=== PATIENT | female | born 1990 | race Caucasian/White ===

== ENCOUNTER 2022-04-04 08:35 | Emergency (ER) | payer MEDICAID ==
[~2022-04-04] VITALS: Ht 152.4 cm; Wt 52.7 kg
[2022-04-04 08:40] VITALS: BP 111/69
--- NOTE | 2022-04-04 10:21 | NUR ---
stool sample collected.
== END 2022-04-04 10:36 | disposition home or self-care (01) ==
LOC: ER 08:35
DX: B89 Unspecified parasitic disease (principal); R06.02 Shortness of breath
CPT/HCPCS: 99281

== ENCOUNTER 2022-04-06 08:49 | Emergency (ER) | payer MEDICAID ==
[~2022-04-06] VITALS: Ht 152.4 cm; Wt 52.7 kg
[2022-04-06 09:07] VITALS: BP 97/59
[2022-04-06] MEDS ORDERED: ALBE200T10 PO (10:37)
[2022-04-06 11:05] LABS: BASOPHILS % (AUTO) 0.3 % (0-1); EOSINOPHILS # (AUTO) 0.1 X10'3 (0-0.9); EOSINOPHILS % (AUTO) 1.5 % (0-6); HEMATOCRIT 34.6 % (35.0-45.0); HEMOGLOBIN 11.5 g/dl (12.0-16.0); LYMPHOCYTES # (AUTO) 1.3 X10'3 (1.1-4.8); LYMPHOCYTES % (AUTO) 18.1 % (21-51); MEAN CORPUSCULAR HEMOGLOBIN 28.2 PG (27.0-31.0); MEAN CORPUSCULAR HGB CONC 33.2 g/dL (33.0-36.5); MONOCYTES % (AUTO) 14.4 % (2-12); NEUTROPHILS # (AUTO) 4.7 X10'3 (1.8-7.7); NEUTROPHILS % (AUTO) 65.7 % (42-75); PLATELET COUNT 357 X10'3 (140-440); RED BLOOD COUNT 4.07 X10'6 (4.20-5.60); RED CELL DISTRIBUTION WIDTH 14.9 % (11.5-14.5); WHITE BLOOD COUNT 7.1 X10'3 (4.5-11.0)
[2022-04-06 11:19] LABS: ALANINE AMINOTRANSFERASE 22 U/L (12-78); ALBUMIN 3.1 G/DL (3.4-5.0); ALBUMIN/GLOBULIN RATIO 0.8 (1.1-1.5); ALKALINE PHOSPHATASE 88 IU/L (46-116); ANION GAP 5 (8-16); ASPARTATE AMINO TRANSFERASE 20 U/L (10-37); BILIRUBIN,TOTAL 0.5 MG/DL (0.1-1.0); BLOOD UREA NITROGEN 13 MG/DL (7-18); BUN/CREATININE RATIO 17.6 (6.6-38.0); CALCIUM 8.5 MG/DL (8.5-10.1); CHLORIDE 105 MMOL/L (99-107); CREATININE 0.74 MG/DL (0.40-0.90); GLUCOSE 96 MG/DL (70-104); SODIUM 139 MMOL/L (135-145); TOTAL CARBON DIOXIDE 29.3 MMOL/L (24-32); eGFR > 90 ML/MIN
[2022-04-06 11:22] LABS: CLARITY,URINE CLEAR (Clear); COLOR,URINE YELLOW (Yellow); GLUCOSE, URINE NEGATIVE (Neg); KETONES,URINE NEGATIVE (Neg); LEUKOCYTE ESTERASE ,URINE NEGATIVE (Neg); NITRITES, URINE NEGATIVE (Neg); OCCULT BLOOD,URINE NEGATIVE (Neg); PROTEIN,URINE NEGATIVE (Neg); UROBILINOGEN,URINE 0.2 E.U/dL (0.2-1.0)
[2022-04-06 11:24] LABS: UA COLLECTION TYPE CLN CATCH MIDSTREAM
== END 2022-04-06 11:15 | disposition home or self-care (01) ==
LOC: ER 08:49
DX: B82.9 Intestinal parasitism, unspecified (principal)
CPT/HCPCS: 36415; 80053; 81003; 85025; 99283

== ENCOUNTER 2022-04-09 09:50 | Emergency (ER) | payer MEDICAID ==
[~2022-04-09] VITALS: Ht 152.4 cm; Wt 52.0 kg
[~2022-04-09 09:50] MED LIST: ALBE200T10 PO
[2022-04-09 11:04] LABS: BASOPHILS % (AUTO) 0.5 % (0-1); EOSINOPHILS # (AUTO) 0.2 X10'3 (0-0.9); EOSINOPHILS % (AUTO) 3.8 % (0-6); HEMATOCRIT 34.9 % (35.0-45.0); HEMOGLOBIN 11.7 g/dl (12.0-16.0); LYMPHOCYTES # (AUTO) 1.4 X10'3 (1.1-4.8); LYMPHOCYTES % (AUTO) 24.8 % (21-51); MEAN CORPUSCULAR HEMOGLOBIN 28.6 PG (27.0-31.0); MEAN CORPUSCULAR HGB CONC 33.6 g/dL (33.0-36.5); MEAN CORPUSCULAR VOLUME 85.1 FL (78-98); MEAN PLATELET VOLUME 6.4 FL (7.4-10.4); MONOCYTES # (AUTO) 1.2 X10'3 (0-0.9); MONOCYTES % (AUTO) 20.8 % (2-12); NEUTROPHILS # (AUTO) 2.8 X10'3 (1.8-7.7); NEUTROPHILS % (AUTO) 50.1 % (42-75); PLATELET COUNT 362 X10'3 (140-440); RED BLOOD COUNT 4.09 X10'6 (4.20-5.60); RED CELL DISTRIBUTION WIDTH 15.1 % (11.5-14.5); WHITE BLOOD COUNT 5.6 X10'3 (4.5-11.0)
[2022-04-09 11:24] LABS: TOTAL CELLS COUNTED 100
[2022-04-09 11:25] LABS: PLATELET ESTIMATE NORMAL
[2022-04-09 11:29] LABS: ALANINE AMINOTRANSFERASE 13 U/L (12-78); ALBUMIN 3.2 G/DL (3.4-5.0); ALBUMIN/GLOBULIN RATIO 0.8 (1.1-1.5); ALKALINE PHOSPHATASE 83 IU/L (46-116); ANION GAP 7 (8-16); ASPARTATE AMINO TRANSFERASE 19 U/L (10-37); BILIRUBIN,TOTAL 0.4 MG/DL (0.1-1.0); BLOOD UREA NITROGEN 16 MG/DL (7-18); BUN/CREATININE RATIO 20.8 (6.6-38.0); CALCIUM 8.4 MG/DL (8.5-10.1); CHLORIDE 103 MMOL/L (99-107); CREATININE 0.77 MG/DL (0.40-0.90); GLUCOSE 82 MG/DL (70-104); LIPASE 96 U/L (73-393); POTASSIUM 4.5 MMOL/L (3.5-5.1); SODIUM 137 MMOL/L (135-145); TOTAL CARBON DIOXIDE 27.4 MMOL/L (24-32); TOTAL PROTEIN 7.4 G/DL (6.4-8.2); eGFR 88 ML/MIN
--- NOTE | 2022-04-09 14:07 | NUR ---
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
[2022-04-09 14:08] LABS: CLARITY,URINE TURBID (Clear); COLOR,URINE RED (Yellow); UA COLLECTION TYPE CLN CATCH MIDSTREAM
[2022-04-09 14:10] VITALS: BP 92/54
[2022-04-09 14:17] LABS: URINE HCG NEGATIVE (NEG)
[2022-04-09 14:22] LABS: BACTERIA,URINE NONE SEEN /HPF (Neg); MUCUS STRANDS NONE SEEN /LPF (Neg); RBC,URINE TNTC /HPF (0-2)
[2022-04-09 14:25] LABS: SQUAMOUS EPITHELIAL CELL,UR FEW /LPF (FEW)
== END 2022-04-09 14:21 | disposition home or self-care (01) ==
LOC: ER 09:50
DX: K92.0 Hematemesis (principal); R10.30 Lower abdominal pain, unspecified; F32.A Depression, unspecified; Z72.89 Other problems related to lifestyle; Z79.899 Other long term (current) drug therapy
CPT/HCPCS: 80053; 81001; 81025; 83690; 85007; 85025; 87088; 99283

== ENCOUNTER 2022-05-14 07:04 | Emergency (ER) | payer MEDICAID ==
[~2022-05-14] VITALS: Ht 152.4 cm; Wt 54.5 kg
[2022-05-14 07:08] VITALS: BP 104/79
[2022-05-14] MEDS ORDERED: TOBR5DRO2 OP (08:39)
== END 2022-05-14 08:50 | disposition home or self-care (01) ==
LOC: ER 07:05
DX: H10.9 Unspecified conjunctivitis (principal); B96.89 Other specified bacterial agents as the cause of diseases classified elsewhere; F32.9 Major depressive disorder, single episode, unspecified; Z56.0 Unemployment, unspecified; Z79.899 Other long term (current) drug therapy
CPT/HCPCS: 99283

== ENCOUNTER 2022-05-22 12:56 | Emergency (ER) | payer MEDICAID ==
[~2022-05-22] VITALS: Ht 152.4 cm; Wt 54.5 kg
[~2022-05-22 12:56] MED LIST changes: +TOBR5DRO2 OP
[2022-05-22] MEDS ORDERED: ibuprofen 200mg tablet PO ONE (14:05)
[2022-05-22 14:45] LABS: BASOPHILS % (AUTO) 0.5 % (0-1); EOSINOPHILS # (AUTO) 0.2 X10'3 (0-0.9); HEMATOCRIT 36.3 % (35.0-45.0); HEMOGLOBIN 11.8 g/dl (12.0-16.0); LYMPHOCYTES # (AUTO) 2.2 X10'3 (1.1-4.8); LYMPHOCYTES % (AUTO) 22.4 % (21-51); MEAN CORPUSCULAR HEMOGLOBIN 27.6 PG (27.0-31.0); MEAN CORPUSCULAR HGB CONC 32.4 g/dL (33.0-36.5); MEAN PLATELET VOLUME 6.2 FL (7.4-10.4); MONOCYTES # (AUTO) 0.9 X10'3 (0-0.9); MONOCYTES % (AUTO) 8.6 % (2-12); NEUTROPHILS # (AUTO) 6.6 X10'3 (1.8-7.7); NEUTROPHILS % (AUTO) 66.5 % (42-75); PLATELET COUNT 304 X10'3 (140-440); RED BLOOD COUNT 4.27 X10'6 (4.20-5.60); RED CELL DISTRIBUTION WIDTH 15.5 % (11.5-14.5); WHITE BLOOD COUNT 9.9 X10'3 (4.5-11.0)
[2022-05-22 14:54] LABS: URINE HCG NEGATIVE (NEG)
[2022-05-22 14:58] LABS: CLARITY,URINE CLEAR (Clear); COLOR,URINE STRAW (Yellow); GLUCOSE, URINE NEGATIVE (Neg); KETONES,URINE NEGATIVE (Neg); LEUKOCYTE ESTERASE ,URINE NEGATIVE (Neg); NITRITES, URINE NEGATIVE (Neg); OCCULT BLOOD,URINE NEGATIVE (Neg); PROTEIN,URINE NEGATIVE (Neg); UROBILINOGEN,URINE 0.2 E.U/dL (0.2-1.0)
[2022-05-22 15:01] LABS: UA COLLECTION TYPE NON-SPECIFIED
[2022-05-22 15:05] LABS: ALANINE AMINOTRANSFERASE 17 U/L (12-78); ALBUMIN 3.5 G/DL (3.4-5.0); ALBUMIN/GLOBULIN RATIO 1.1 (1.1-1.5); ALKALINE PHOSPHATASE 81 IU/L (46-116); ANION GAP 2 (8-16); ASPARTATE AMINO TRANSFERASE 23 U/L (10-37); BILIRUBIN,TOTAL 0.6 MG/DL (0.1-1.0); BLOOD UREA NITROGEN 19 MG/DL (7-18); BUN/CREATININE RATIO 23.8 (6.6-38.0); CALCIUM 8.5 MG/DL (8.5-10.1); CHLORIDE 105 MMOL/L (99-107); GLUCOSE 80 MG/DL (70-104); POTASSIUM 3.5 MMOL/L (3.5-5.1); SODIUM 138 MMOL/L (135-145); TOTAL PROTEIN 6.8 G/DL (6.4-8.2); eGFR 84 ML/MIN
[2022-05-22 15:47] VITALS: BP 115/65
[2022-05-22] MEDS ORDERED: acetaminophen 325mg tablet PO ONE (15:55)
[2022-05-22] MEDS ORDERED: DOCU-148 PO (16:39)
[2022-05-22] MEDS ORDERED: IBUP-1984 PO (16:39)
== END 2022-05-22 16:50 | disposition home or self-care (01) ==
LOC: ER 12:57
DX: R10.32 Left lower quadrant pain (principal); F32.9 Major depressive disorder, single episode, unspecified; Z56.0 Unemployment, unspecified; Z79.899 Other long term (current) drug therapy
CPT/HCPCS: 36415; 76856; 80053; 81003; 81025; 85025; 93976; 99284

== ENCOUNTER 2022-05-31 07:34 | Emergency (ER) | payer MEDICAID ==
[~2022-05-31] VITALS: Ht 152.4 cm; Wt 54.0 kg
[~2022-05-31 07:34] MED LIST changes: +DOCU-148 PO
[2022-05-31] MEDS ORDERED: normal saline 1000ML IV soln IV ONE (09:10)
[2022-05-31 09:13] LABS: URINE HCG NEGATIVE (NEG)
[2022-05-31 09:30] LABS: CLARITY,URINE SLIGHTLY CLOUDY (Clear); COLOR,URINE YELLOW (Yellow); GLUCOSE, URINE NEGATIVE (Neg); KETONES,URINE NEGATIVE (Neg); LEUKOCYTE ESTERASE ,URINE NEGATIVE (Neg); NITRITES, URINE NEGATIVE (Neg); OCCULT BLOOD,URINE NEGATIVE (Neg); PH,URINE 7.5 (4.8-8.0); PROTEIN,URINE NEGATIVE (Neg); UROBILINOGEN,URINE 0.2 E.U/dL (0.2-1.0)
[2022-05-31 09:43] LABS: MUCUS STRANDS FEW /LPF (Neg); SQUAMOUS EPITHELIAL CELL,UR MODERATE /LPF (FEW); UA COLLECTION TYPE CLN CATCH MIDSTREAM
[2022-05-31 09:44] LABS: BACTERIA,URINE FEW /HPF (Neg); RBC,URINE 0-2 /HPF (0-2); WBC,URINE 0-4 /HPF (0-4)
[2022-05-31 09:51] LABS: BASOPHILS % (AUTO) 0.3 % (0-1); EOSINOPHILS # (AUTO) 0.3 X10'3 (0-0.9); EOSINOPHILS % (AUTO) 3.3 % (0-6); HEMATOCRIT 38.4 % (35.0-45.0); LYMPHOCYTES # (AUTO) 2.5 X10'3 (1.1-4.8); LYMPHOCYTES % (AUTO) 24.1 % (21-51); MEAN CORPUSCULAR HEMOGLOBIN 28.5 PG (27.0-31.0); MEAN CORPUSCULAR HGB CONC 33.9 g/dL (33.0-36.5); MEAN CORPUSCULAR VOLUME 84.1 FL (78-98); MEAN PLATELET VOLUME 6.2 FL (7.4-10.4); MONOCYTES # (AUTO) 0.9 X10'3 (0-0.9); MONOCYTES % (AUTO) 8.7 % (2-12); NEUTROPHILS # (AUTO) 6.7 X10'3 (1.8-7.7); NEUTROPHILS % (AUTO) 63.6 % (42-75); PLATELET COUNT 271 X10'3 (140-440); RED BLOOD COUNT 4.57 X10'6 (4.20-5.60); RED CELL DISTRIBUTION WIDTH 16.1 % (11.5-14.5); WHITE BLOOD COUNT 10.6 X10'3 (4.5-11.0)
[2022-05-31 10:04] LABS: ALBUMIN 3.7 G/DL (3.4-5.0); ALBUMIN/GLOBULIN RATIO 1.1 (1.1-1.5); ANION GAP 7 (8-16); ASPARTATE AMINO TRANSFERASE 16 U/L (10-37); BILIRUBIN,TOTAL 0.6 MG/DL (0.1-1.0); BLOOD UREA NITROGEN 16 MG/DL (7-18); CALCIUM 8.6 MG/DL (8.5-10.1); CHLORIDE 105 MMOL/L (99-107); GLUCOSE 83 MG/DL (70-104); POTASSIUM 4.1 MMOL/L (3.5-5.1); SODIUM 139 MMOL/L (135-145); TOTAL CARBON DIOXIDE 27.1 MMOL/L (24-32); TOTAL PROTEIN 7.1 G/DL (6.4-8.2); eGFR 84 ML/MIN
[2022-05-31 10:05] LABS: ALANINE AMINOTRANSFERASE 14 U/L (12-78); ALKALINE PHOSPHATASE 73 IU/L (46-116)
[2022-05-31 10:45] VITALS: BP 106/67
== END 2022-05-31 10:56 | disposition home or self-care (01) ==
LOC: ER 07:34
DX: R55 Syncope and collapse (principal); D50.9 Iron deficiency anemia, unspecified; Z56.0 Unemployment, unspecified
CPT/HCPCS: 36415; 80053; 81001; 81025; 82948; 85025; 93005; 96360; 96361; 99284; J7030

== ENCOUNTER 2022-06-15 13:56 | Emergency (ER) | payer MEDICAID ==
[~2022-06-15] VITALS: Ht 152.4 cm; Wt 56.0 kg
[2022-06-15 14:00] VITALS: BP 138/65
[2022-06-15] MEDS ORDERED: LORazepam 1 MG tablet PO ONE (14:40)
[2022-06-15] MEDS ORDERED: albuterol 2.5 MG/3 ML nebule NEB ONE (14:40)
[2022-06-15] MEDS ORDERED: ALBU8HFA PO (15:34)
== END 2022-06-15 16:05 | disposition home or self-care (01) ==
LOC: ER 13:57
DX: F41.9 Anxiety disorder, unspecified (principal); Z87.891 Personal history of nicotine dependence; Z56.0 Unemployment, unspecified
CPT/HCPCS: 71045; 94640; 94760; 99283

== ENCOUNTER 2022-06-20 16:09 | Emergency (ER) | payer MEDICAID ==
[~2022-06-20] VITALS: Ht 152.4 cm; Wt 54.0 kg
[~2022-06-20 16:09] MED LIST changes: +ALBU8HFA PO
[2022-06-20] MEDS ORDERED: ketorolac trometh inj. 60 MG/2 ML VIAL IM ONE (16:35)
[2022-06-20 18:36] VITALS: BP 130/86
== END 2022-06-20 18:53 | disposition home or self-care (01) ==
LOC: ER 16:09
DX: S09.8XXA Other specified injuries of head, initial encounter (principal); F32.A Depression, unspecified; Z56.0 Unemployment, unspecified; X58.XXXA Exposure to other specified factors, initial encounter; Y93.89 Activity, other specified; Y92.89 Other specified places as the place of occurrence of the external cause; Y99.8 Other external cause status
CPT/HCPCS: 70486; 96372; 99285; J1885

== ENCOUNTER 2022-07-05 12:34 | Emergency (ER) | payer MEDICAID ==
[~2022-07-05] VITALS: Ht 152.4 cm; Wt 124.0 kg
[2022-07-05 13:38] VITALS: BP 109/76
[2022-07-05] MEDS ORDERED: hydrOXYzine 25 MG tablet PO ONE (14:25)
[2022-07-05] MEDS ORDERED: HYDR-3686 PO (14:38)
== END 2022-07-05 14:57 | disposition home or self-care (01) ==
LOC: ER 12:35
DX: F41.9 Anxiety disorder, unspecified (principal); R42 Dizziness and giddiness; Z56.0 Unemployment, unspecified
CPT/HCPCS: 93005; 99283; Q0177